=== PATIENT | male | born 1965 | race Caucasian/White ===

== ENCOUNTER 2021-04-23 10:58 | Outpatient (CLI) | payer SELFPAY ==
--- NOTE | 2021-04-23 11:12 | XR_ITS ---
WS: [id number] Right ankle, 3 views, 04/23/2021 Clinical Data: M19.071 - Primary osteoarthritis, right ankle and foot Comparison: None. Findings: No fractures or dislocations are seen. The ankle mortise is normal. The talus and calcaneus are unrem arkable. No soft tissue swelling over the medial or lateral malleolus is seen. There is a small Achilles spur. XR/XR ankle RT min 3V* [id number] Impression: Negative right ankle.
--- NOTE | 2021-04-23 11:12 | XR_ITS ---
WS: [id number] Lumbar spine, AP, L5-S1 spot, both obliques, lateral views in flexion, extension and neutral position , 04/23/2021 Clinical Data: M51.36 - Other intervertebral disc degeneration, lumbar r... Comparison: None. Findings: No compression fractures or subluxation is seen. There is degenerative disc narrowing at L4-L5 and L5 -S1. The transverse processes and SI joints are normal. There is anterior osteophyte formation at L5- S1. The oblique films show no spondylolysis. On flexion and extension there is no limitation of motion or subluxation. XR/XR lumbar spine 6V w f/e [id number] Impression: 1. Degenerative disc narrowing at L4-L5 and L5-S1 with osteophytes at L5-S1. 2. Negative for spondylolysis. 3. On flexion and extension there is no limitation of motion or subluxation.
--- NOTE | 2021-04-23 11:12 | XR_ITS ---
WS: [id number] Left ankle, 3 views, 04/23/2021 Clinical Data: M19.071 - Primary osteoarthritis, left ankle and foot Comparison: None. Findings: No fractures or dislocations are seen. The ankle mortise is normal. The talus and calcaneus are unrem arkable. No soft tissue swelling over the medial or lateral malleolus is seen. There is a plantar spur and an Achilles spur. XR/XR ankle LT min 3V* [id number] Impression: Negative left ankle.
== END 2021-04-23 10:59 | disposition home or self-care (01) ==
LOC: RADSHAW 10:59
PROVIDERS: PCP Nurse Practitioner Family; Visit Provider Nurse Practitioner Family
DX: M51.36 Other intervertebral disc degeneration, lumbar region (principal); M19.071 Primary osteoarthritis, right ankle and foot; M19.072 Primary osteoarthritis, left ankle and foot; M25.78 Osteophyte, vertebrae
CPT/HCPCS: 72114; 73610

== ENCOUNTER → 2023-09-14 10:43 | Outpatient (BNVA) | payer SELFPAY | PROVIDERS: PCP Nurse Practitioner Family; Visit Provider Nurse Practitioner Family | DX: Z13.6 Encounter for screening for cardiovascular disorders (principal) ==

== ENCOUNTER → 2024-08-21 11:48 | Outpatient (BNVA) | payer MEDICAID, SELFPAY | PROVIDERS: PCP Nurse Practitioner Family; Visit Provider Nurse Practitioner Family | DX: R06.02 Shortness of breath (principal); M79.89 Other specified soft tissue disorders | CPT/HCPCS: 80053; 83880; 85025; 85379; 85610 ==

== ENCOUNTER 2024-08-30 06:42 | Outpatient (CLI) | payer MEDICAID, SELFPAY ==
--- NOTE | 2024-08-30 07:00 | USCV_ITS ---
Mekhi Sanchez Age: 58 Gender: M : 1965 Exam Date: 08/30/2024 06:48 Ordering Phys: CHRISTELLE Hawthorne APRN Technologist: [place] [facility] [place]: cp sob BP: 135 / 80 HR: 74 Rhythm: Sinus Technical Quality: Adequate MEASUREMENTS (Male / Female) Normal Values 2D ECHO LV Diastolic Diameter PLAX 5.0 cm 4.2 - 5.9 / 3.9 - 5.3 cm IVS Diastolic Thickness 1.2 cm 0.6 - 1.0 / 0.6 - 0.9 cm IVS Systolic Thickness 1.7 cm LVPW Diastolic Thickness 1.3 cm 0.6 - 1.0 / 0.6 - 0.9 cm LVPW Systolic Thickness 1.7 cm LVOT Diameter 2.1 cm LV Ejection Fraction 2D Teich 76.3 % LV Ejection Fraction MOD 4C 68.8 % LV Ejection Fraction MOD 2C 55.6 % LV Ejection Fraction 2C AL 54.7 % LA Diameter 3.5 cm RA Systolic Volume 4C AL 66.5 ml RA Systolic Volume 4C MOD 63.7 ml Aorta at Sinotubular Diameter 2.5 cm IVC Diameter 2.2 cm M-MODE LA Ao Ratio MM 1.5 AV Cusp Separation MM 2.5 cm DOPPLER AV Peak Velocity 161.0 cm/s LVOT Peak Velocity 133.0 cm/s AV Area Cont Eq vti 3.4 cm squared AV Area Cont Eq pk 2.9 cm squared MV Peak Velocity 131.0 cm/s MV Area PHT 4.5 cm squared Mitral E to A Ratio 1.5 TR Peak Velocity 307.0 cm/s TR Peak Gradient 37.7 mmHg TV Peak E Velocity 123.0 cm/s PV Peak Velocity 114.0 cm/s FINDINGS Left Ventricle Normal left ventricular size and systolic function, EF 56%.no regional wall motion abnormalities. Right Ventricle The right ventricle is normal in size and function. Right Atrium The right atrium is normal in size. Left Atrium The left atrium is normal in size. Mitral Valve Trace to mild mitral valve regurgitation. Aortic Valve Thickened aortic valve. Tricuspid Valve Mild tricuspid valve regurgitation. Estimated pulmonary artery peak systolic pressure 40 mmHg Pulmonic Valve No gross abnormalities noted Pericardium Normal pericardium without effusion. Aorta Normal ascending aorta dimension. IVC Normal inferior vena cava. CONCLUSIONS Normal left ventricular size and systolic function, EF 56%.no regional wall motion abnormalities. Trace to mild mitral valve regurgitation. Mild tricuspid valve regurgitation. Estimated pulmonary artery peak systolic pressure 40 mmHg. There is no pericardial effusion. There are no intracardiac masses. No similar previous studies are available for comparison Dr Olaf Leahy MD FAC (Electronically Signed) Final Date: 31 August 2024 07:51 S
== END 2024-08-30 06:43 | disposition home or self-care (01) ==
LOC: RAD 06:43
PROVIDERS: PCP Nurse Practitioner Family; Visit Provider Nurse Practitioner Family
DX: I35.0 Nonrheumatic aortic (valve) stenosis (principal); R06.02 Shortness of breath; R60.0 Localized edema
CPT/HCPCS: 93306

== ENCOUNTER 2024-09-05 09:49 | Outpatient (CLI) | payer MEDICAID, SELFPAY ==
--- NOTE | 2024-09-05 11:00 | US_ITS ---
WS: [id number] ULTRASOUND THYROID TECHNIQUE: Ultrasound of the thyroid. CLINICAL INFORMATION: R79.89 - Other specified abnormal findings of blood chemi... COMPARISON: None. FINDINGS: Thyroid: Enlarged heterogeneous multinodular thyroid gland. Enlarged isthmus. Innumerable small nodul es bilaterally. Findings suspicious for multinodular goiter. Recommend correlation with thyroid funct ion studies. Right thyroid lobe: 5.9 cm x 2.1 cm x 2.4 cm Left thyroid lobe: 5.1 cm x 2.1 cm x 2.4 cm. Isthmus: 0.7 mm. Cervical lymphadenopathy: None. US/US thyroid [id number] IMPRESSION: Findings suspicious for multinodular goiter. Recommend correlation with thyroid function studies.
== END 2024-09-05 09:50 | disposition home or self-care (01) ==
LOC: RAD 09:50
PROVIDERS: PCP Nurse Practitioner Family; Visit Provider Nurse Practitioner Family
DX: E04.2 Nontoxic multinodular goiter (principal); R79.89 Other specified abnormal findings of blood chemistry
CPT/HCPCS: 76536

== ENCOUNTER → 2024-09-06 11:26 | Outpatient (BNVA) | payer MEDICAID, SELFPAY | PROVIDERS: PCP Nurse Practitioner Family; Visit Provider Nurse Practitioner Family | DX: I10 Essential (primary) hypertension (principal); E78.2 Mixed hyperlipidemia; R79.89 Other specified abnormal findings of blood chemistry; E55.9 Vitamin D deficiency, unspecified; E04.2 Nontoxic multinodular goiter | CPT/HCPCS: 80053; 80061; 82652; 83516; 84436; 86376 ==

== ENCOUNTER → 2024-10-26 08:16 | Outpatient (BNVA) | payer MEDICAID, SELFPAY | PROVIDERS: PCP Nurse Practitioner Family; Visit Provider Internal Medicine | DX: E04.2 Nontoxic multinodular goiter (principal); R79.89 Other specified abnormal findings of blood chemistry; E06.3 Autoimmune thyroiditis; E05.00 Thyrotoxicosis with diffuse goiter without thyrotoxic crisis or storm | CPT/HCPCS: 36415; 84439; 84443; 84480; 99204 ==

== ENCOUNTER → 2024-12-21 09:50 | Outpatient (BNVA) | payer MEDICAID, SELFPAY | PROVIDERS: PCP Nurse Practitioner Family; Visit Provider Internal Medicine | DX: E05.00 Thyrotoxicosis with diffuse goiter without thyrotoxic crisis or storm (principal); E06.3 Autoimmune thyroiditis; R79.89 Other specified abnormal findings of blood chemistry; E04.2 Nontoxic multinodular goiter | CPT/HCPCS: 84439; 84443; 84480 ==

== ENCOUNTER → 2024-12-25 08:20 | Outpatient (BNVA) | payer MEDICARE, MEDICAID, SELFPAY | PROVIDERS: PCP Nurse Practitioner Family; Visit Provider Internal Medicine | DX: I10 Essential (primary) hypertension (principal); R79.89 Other specified abnormal findings of blood chemistry; E04.2 Nontoxic multinodular goiter; E06.3 Autoimmune thyroiditis; E05.00 Thyrotoxicosis with diffuse goiter without thyrotoxic crisis or storm | CPT/HCPCS: 99214 ==

== ENCOUNTER → 2025-02-27 10:18 | Outpatient (BNVA) | payer MEDICARE, MEDICAID, SELFPAY | PROVIDERS: PCP Nurse Practitioner Family; Visit Provider Internal Medicine | DX: I10 Essential (primary) hypertension (principal); E04.2 Nontoxic multinodular goiter; E06.3 Autoimmune thyroiditis; E05.00 Thyrotoxicosis with diffuse goiter without thyrotoxic crisis or storm; R79.89 Other specified abnormal findings of blood chemistry | CPT/HCPCS: 84439; 84443; 84480 ==

== ENCOUNTER → 2025-03-08 08:56 | Outpatient (BNVA) | payer MEDICARE, MEDICAID, SELFPAY | PROVIDERS: PCP Nurse Practitioner Family; Visit Provider Nurse Practitioner Family | DX: I10 Essential (primary) hypertension (principal); E78.2 Mixed hyperlipidemia; E05.00 Thyrotoxicosis with diffuse goiter without thyrotoxic crisis or storm; E04.2 Nontoxic multinodular goiter; M19.071 Primary osteoarthritis, right ankle and foot; M19.072 Primary osteoarthritis, left ankle and foot; R79.89 Other specified abnormal findings of blood chemistry; R60.9 Edema, unspecified; Z79.899 Other long term (current) drug therapy | CPT/HCPCS: 73562; 73610; 80053; 80061; 82306; 83036; 83880; 84439; 84443; 84480; 85025; 85651; 86038; 86140; 86431 ==